=== PATIENT | male | born 1970 | race Caucasian/White ===

== ENCOUNTER 2021-01-07 11:46 | Emergency (ER) | payer OTHER ==
[2021-01-07] MEDS ORDERED: Ketorolac 10 MG Tab PO ONE (12:41)
--- NOTE | 2021-01-07 12:53 | EDM.PDOC ---
ED HPI GENERAL MEDICAL PROBLEM - General Chief Complaint: Flank Pain Stated Complaint: KIDNEY STONES??? Time Seen by Provider: 01/07/21 12:35 Source of Information: Reports: Patient History Limitations: Reports: No Limitations - History of Present Illness INITIAL COMMENTS - FREE TEXT/NARRATIVE: 50-year-old male with a history of nephrolithiasis, last episode was a couple of years ago, developed right flank pain this morning shortly after waking up and it has waxed and waned all morning. Became most painful while out in the waiting room, now feels better. Some nausea but no vomiting, no urinary symptoms other than the flank pain, no fevers or chills. Onset: Sudden (Started fairly suddenly 6 hours ago, right flank) Quality: Reports: Sharp, Stabbing Left Flank Pain Score (Numeric/FACES): 3 - Related Data Allergies Allergy/AdvReac Type Severity Reaction Status Date / Time No Known Allergies Allergy Verified 01/07/21 12:07 Home Meds: Home Meds Loratadine 10 mg PO ASDIRECTED 01/07/21 [History] Venlafaxine [Effexor XR] 150 mg PO DAILY 01/07/21 [History] Past Medical History HEENT History: Reports: Impaired Vision Genitourinary History: Reports: Renal Calculus - Infectious Disease History Infectious Disease History: Reports: Chicken Pox Social & Family History - Tobacco Use Tobacco Use Status *Q: Current Every Day Tobacco User Years of Tobacco use: 30 Packs/Tins Daily: 0.5 - Caffeine Use Caffeine Use: Reports: None - Recreational Drug Use Recreational Drug Use: No ED ROS GENERAL - Review of Systems Review Of Systems: See Below Constitutional: Denies: Fever, Chills HEENT: Reports: No Symptoms Respiratory: Reports: No Symptoms Cardiovascular: Reports: No Symptoms GI/Abdominal: Denies: Abdominal Pain : Reports: Flank Pain (Right-sided, waxing and waning) Skin: Reports: No Symptoms ED EXAM, GENERAL - Physical Exam Exam: See Below Exam Limited By: No Limitations General Appearance: Alert, No Apparent Distress, Other (Fairly comfortable at t his time) Head: Atraumatic Respiratory/Chest: No Respiratory Distress, Lungs Clear Cardiovascular: Regular Rate, Rhythm GI/Abdominal: Soft Back Exam: No: CVA Tenderness (R), CVA Tenderness (L) Neurological: Alert, Oriented Skin Exam: Warm, Dry Course - Vital Signs Last Recorded V/S: Last Vital Signs Temp 97.1 F 01/07/21 12:04 Pulse 71 01/07/21 13:00 Resp 18 01/07/21 12:04 BP 144/90 H 01/07/21 13:00 Pulse Ox 98 01/07/21 12:04 - Orders/Labs/Meds Labs: Laboratory Tests 01/07/21 Range/Units 12:41 Urine Color Yellow (YELLOW) Urine Appearance Slightly cloudy A (CLEAR) Urine pH 7.5 (5.0-8.0) Ur Specific Rudd 1.020 (1.008-1.030) Urine Protein Negative (NEGATIVE) mg/dL Urine Glucose (UA) Negative (NEGATIVE) mg/dL Urine Ketones Negative (NEGATIVE) mg/dL Urine Occult Blood Moderate H (NEGATIVE) Urine Nitrite Negative (NEGATIVE) Urine Bilirubin Negative (NEGATIVE) Urine Urobilinogen 0.2 (0.2-1.0) EU/dL Ur Leukocyte Esterase Negative (NEGATIVE) Urine RBC 10-20 H (0-5) Urine WBC Not seen (0-5) Ur Epithelial Cells Not seen Amorphous Sediment Not seen Urine Bacteria Not seen Urine Mucus Moderate Meds: Medications Discontinued Medications Generic Name Dose Route Start Last Admin Trade Name Freq PRN Reason Stop Dose Admin Ketorolac Tromethamine 10 mg 01/07/21 12:41 01/07/21 12:58 Ketorolac 10 Mg Tab PO 01/07/21 12:42 10 mg ONETIME ONE Administration Tamsulosin HCl 0.4 mg 01/07/21 13:17 01/07/21 13:48 Tamsulosin 0.4 Mg Cap.Er PO 01/07/21 13:18 Not Given ONETIME ONE - Re-Assessments/Exams Free Text/Narrative Re-Assessment/Exam: 01/07/21 13:27 UA was obtained and showed 10-20 RBCs per high-power field. Discussed with the patient treatment options, one would be conservative with daily Flomax, anti- inflammatories and watchful waiting. The other would be more aggressive into a CT scan. He wanted to avoid the scan if possible, so will be discharged with 5 days of Flomax after his initial dose here, and 20 doses of Toradol to take as needed. He can return anytime if worsening such as fever, increased urinary symptoms, vomiting medication or other concerns. Departure - Departure Time of Disposition: 13:49 Disposition: Home, Self-Care 01 Clinical Impression: Colic, ureteral - Discharge Information Instructions: Flank Pain, Adult, [id number] Referrals: PCP,None [Primary Care Provider] - Forms: ED Department Discharge Care Plan Goals: Take Toradol every 6-8 hours for pain, activity as tolerated, stay hydrated, and take 1 Flomax daily until pain is completely gone. Return anytime if worsening such as fever, chills, nausea or vomiting or intractable pain. Sepsis Event Note (ED) - Evaluation Sepsis Screening Result: No Definite Risk - Focused Exam Vital Signs: Vital Signs Temp Pulse Resp BP Pulse Ox 01/07/21 13:00 71 144/90 H 01/07/21 12:04 97.1 F 76 18 158/105 H 98
[2021-01-07] MEDS ORDERED: Tamsulosin 0.4 MG Cap.ER PO ONE (13:17)
== END 2021-01-07 13:50 | disposition home or self-care (01) ==
LOC: JP.ED 11:46
DX: N23 Unspecified renal colic (principal); Z72.0 Tobacco use
CPT/HCPCS: 81001; 99283; 99284; A9270